=== PATIENT | female | born 1985 | race Caucasian/White ===

== ENCOUNTER 2018-08-13 16:35 | Emergency (ER) | payer MEDICAID ==
[2018-08-13] MEDS: DIPHTH/TET/ACEL PERTUSS (ADULT) 0.5 ML VIAL IM* (17:22)
== END 2018-08-13 17:38 | disposition home or self-care (01) ==
LOC: FTE 16:35
DX: S81.852A Open bite, left lower leg, initial encounter (principal); W54.0XXA Bitten by dog, initial encounter; Y92.9 Unspecified place or not applicable; Z23 Encounter for immunization
CPT/HCPCS: 90471; 90715; 99283-25